=== PATIENT | male | born 1940 | race Caucasian/White ===

== ENCOUNTER 2023-11-21 19:21 | Emergency (ER) | payer MEDICARE, OTHER, SELFPAY ==
[2023-11-21 19:24] VITALS: BP 122/97
[2023-11-21 19:25] VITALS: BP 122/97
[2023-11-21 19:55] VITALS: BP 124/77
[2023-11-21 20:00] VITALS: BP 128/61
--- NOTE | 2023-11-21 20:08 | ED.GENMED ---
History of Present Illness
General
Chief Complaint: Fall
Source: senior living (Spoke with Stephanie at [facility])
Exam Limitations: dementia
Time Seen by Provider: 11/21/23 19:25
Travel History
Have you had any contact with someone who has COVID-19?: Unable to Answer
Do you have any symptoms of coronavirus? Fever > 100 degrees, chills, cough, shortness of breath, sore throat, loss of taste or smell, muscle aches, or headache?: Unable to Answer
History of Present Illness
History of Present Illness:
This is a 82 year old male that is brought in by ambulance after an unwitnessed fall. Called and spoke with Stephanie at [facility]. Told that patient fell hitting his face/head on the door. Told that this was an Unwitnessed fall. Denies any
LOC. Denies any fever, chills, chest pain, SOB, abd pain, nausea, vomiting, diarrhea, headache, dizziness.
Past History
Past History
ED Past Medical History: CAD, Cancer (Skin Ca), CVA, GERD, HTN, Hypercholesterolemia, CO and Psychiatric (Claustrophobia)
ED Past Surgical History: Cardiac (Stents X 2 LAD), Orthopedic (right knee Meniscus), Urological (Vasectomy) and Other (cataracts)
Social History
Tobacco: Non-smoker
Alcohol: None
Personal:
Living: senior living ([facility])
Review of Systems
Review of Systems
Unable to obtain full review of systems at this time due to: dementia
Other source history: senior living
All Other Systems: ROS reviewed and negative except as documented in HPI and ROS
Constitutional: Reports no symptoms; Denies fever or chills
EENT: Reports no symptoms
Respiratory: Reports no symptoms; Denies cough or trouble breathing
Cardiac: Reports no symptoms; Denies chest pain
ABD/GI: Reports no symptoms; Denies abdominal pain, nausea, vomiting or diarrhea
: Reports incontinence
Musculoskeletal: Reports no symptoms
Skin: Reports other (abrasion to face)
Neurological: Reports no symptoms; Denies dizzy or headache
Psychiatric: Reports no symptoms
Phy Exam
General Physical Exam
General Presentation: no apparent distress
General age: appears stated age
General Skin: warm and dry
General Habitus: elderly
General Mental: usual mental status
General Hydration: dry mucous membranes
ENT Exam
ENT Exam: TM's normal, pharynx normal and neck supple
Eye Exam
Eye Exam: EOMI
Cardiovascular Exam
Cardiovascular Exam: regular rate/rhythm, no edema and normal peripheral pulses
Pulmonary Exam
Pulmonary Exam: lungs clear, no respiratory distress, no rales, chest non tender, no crackles, no rhonchi, no wheezing and no cough
Gastrointestinal Exam
Gastrointestinal Exam: normal bowel sounds, non tender, soft, no organomegaly, no pulsatile mass and non distended
Musculoskeletal Exam
Musculoskeletal Exam: full ROM and no edema
Skin Exam
Skin Exam: normal color, warm/dry, no petechia and other (Abrasion to the right upper cheek, with contusion around the outer aspect of the right eye with superficial laceration at eyebrow)
Psychiatric Exam
Psychiatric Exam: normal mood/affect
Course
Orders/Labs/Results
Orders:
Orders
11/21/23 19:23
Electrocardiogram (*1) Urgent
Reason for Study: Fatigue / Weakness
11/21/23 19:24
EKG- Treatment ONCE
11/21/23 20:07
Facial Bones wo Contrast CT [CT Facial Bones W/o Iv Contras] Urgent
Comment:
Reason For Exam: fall hitting face
11/21/23 20:08
CT Head W/o Iv Contrast Urgent
Comment:
Reason For Exam: Unwitnessed fall hitting face and head
11/21/23 21:02
Urinalysis Reflex To Culture Urgent
Date Specimen was Collected: 11/21/23
Time Specimen was Collected: 20:53
Urine Microscopic Reflex Cult Urgent
Urine Culture Urgent
RAHUL Source: U
Specimen Description:
Date Specimen was Collected: 11/21/23
Time Specimen was Collected: 20:53
Abnormal Lab Results
11/21/23
21:02
Urine Ketones Trace A
(Negative)
Ur Occult Blood Reflex 3+ A
(Negative)
Urine Nitrite (Reflex) Positive A
(Negative)
Urine Urobilinogen 2+ A
(Neg - 1+)
Leukocyte Esterase Rfl 1+ A
(Negative)
Urine WBC (Reflex) 11-15 A /HPF
(0-5)
Urine Bacteria (Reflex) Many A
(Negative)
Urine Albumin (Reflex) 1+ A
(Neg - Trace)
Urine positive for infection.
Vital Signs
Initial and Last Documented VS:
Initial Vital Signs
Temp Pulse Resp BP Pulse Ox
98.0 F 69 16 122/97 98
11/21/23 19:24 11/21/23 19:24 11/21/23 19:24 11/21/23 19:24 11/21/23 19:24
Last Documented Vital Signs
Temp Pulse Resp BP Pulse Ox
98.0 F 76 17 128/61 96
11/21/23 19:24 11/21/23 21:15 11/21/23 21:15 11/21/23 20:00 11/21/23 21:00
MDM/Problems Addressed
Differential Diagnosis Includes:
UTI, Accidental fall
MDM/Problems Addressed:
This is a 82 year old male that comes in by ambulance with c/o unwitnessed fall. Called and spoke with Stephanie and said that the patient fall hitting the door but was unwitnessed.
will get CT head and facial bones.
Will discharge patient home. Back into see patient and he was quietly watching TV. Patient has no complaints.
Chronic conditions affecting care:
Dementia,
Acute Exacerbation and/or Progression of Chronic Illness:
Dementia
*Radiology
Radiology exam reviewed: radiology read reviewed (CT head and facial bones- NO CT evidence for an acute facial bone fracture. No acute intracranial abnormality. 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 Parenchymal atrophy with resultant
ventriculomegaly. Normal pressure Hydrocephalus would be an alternative consideration. )
*Pulse Oximetry
Patient hypoxic: no
*EKG
Interpreted by ED Provider?: Yes
Heart Rate: 71
Rate: normal
Rhythm: sinus
[place]: left axis deviation
Interval: normal interval
QRS Pattern: low voltage
Ischemia: no ischemia
*[employer] Interpretation
Rate: normal
Heart Rate: 69
Rhythm: sinus
*Critical Care Note
Total Time (30-74mins, 75-104mins- exclusive of procedures): Not Applicable
ED Attending Note
-
Portions of this chart may have been created with voice recognition software.� Occasional wrong word or��sound alike� substitutions may have occurred due to the inherent limitations of voice recognition software.
Discharge Plan
Departure
Patient Disposition: Long-Term/SNF
Date of Disposition: 11/21/23
Time of Disposition: 21:33
Patient with high blood pressure during this ER visit?: No
Condition: Good
Covid-19: Not Applicable
Discharge Problem:
Urinary tract infection, Accidental fall
Instructions: Contusion (DC), Preventing falls in adults, Urinary Tract Infection - Men
Prescriptions:
New
cephalexin 500 mg capsule
500 mg PO BID 7 Days Qty: 13 0RF
No Action
glucosamine HCl 1,500 MG tablet
1,500 mg PO BID
vitamin B complex 1 TAB tablet
1 tab PO Q2D
docosahexaenoic acid-epa 1 CAP capsule
2 cap PO BID
saw palmetto-pumpkin seed oil 160 MG capsule
160 mg PO BID
atorvastatin 80 MG tablet
80 mg PO QPM Qty: 90 10RF
clopidogrel 75 MG tablet
75 mg PO DAILY Qty: 90 10RF
pantoprazole 40 MG tablet,delayed release (DR/EC)
40 mg PO DAILY Qty: 90 10RF
losartan 25 MG tablet
25 mg PO DAILY Qty: 90 10RF
aspirin 81 MG tablet,chewable
81 mg PO DAILY 0RF
sildenafil [Viagra] 100 MG tablet
100 mg PO DAILY PRN (Reason: intercourse)
Referrals:
Elin Jacobo CRNP [Family Provider] - Call in 1-3 days for appt
Activity Restrictions/Additional Instructions:
As discussed, your CT of the head and facial bones is negative for any acute process. You do have a Urinary tract infection. Patient has been given his first dose of antibiotic here and a prescription for the next 7 days. Follow up with the family
doctor for recheck. Please increase his water intake to 8-8oz glasses daily. IF YOU HAVE ANY OTHER CONCERNS PLEASE RETURN TO THE EMERGENCY ROOM.
Interventions
Interventions:
*Risk Screen - Suicide Last Done: 11/21/23 19:24
*General Assessment Last Done: 11/21/23 19:37
*Neglect/Abuse Screening Last Done: 11/21/23 19:27
ED-Musculoskeletal Assessment Last Done: 11/21/23 19:58
ED- Neurological Assessment Last Done: 11/21/23 19:58
ED-Skin Assessment Last Done: 11/21/23 19:58
Discharge Date and Time
Print Language: [id number]
[2023-11-21 21:12] LABS: Urine Albumin 1+ (Neg - Trace); Urine Bilirubin Negative (Negative); Urine Character Clear (Clear); Urine Color Yellow; Urine Glucose Negative (Negative); Urine Ketone Trace (Negative); Urine Leukocyte 1+ (Negative); Urine Nitrite Positive (Negative); Urine Occult Blood 3+ (Negative); Urine Specific Gravity 1.025 (<1.030); Urine Urobilinogen 2+ (Neg - 1+)
[2023-11-21 21:20] LABS: Urine Bacteria Many (Negative); Urine Red Blood Cell 0-2 /HPF (0-2)
[2023-11-21] MEDS: KEFLEX 500 MG PO (21:36)
== END 2023-11-22 00:55 ==
LOC: EMR 19:21
PROVIDERS: Clinical Nurse Specialist Family Health; EMERGENCY PHYSICIAN Emergency Medicine; FAMILY PHYSICIAN Nurse Practitioner Adult Health
DX: S01.111A Laceration without foreign body of right eyelid and periocular area, initial encounter (principal); S00.11XA Contusion of right eyelid and periocular area, initial encounter; S00.81XA Abrasion of other part of head, initial encounter; N39.0 Urinary tract infection, site not specified; W01.198A Fall on same level from slipping, tripping and stumbling with subsequent striking against other object, initial encounter; I25.10 Atherosclerotic heart disease of native coronary artery without angina pectoris; I10 Essential (primary) hypertension; K21.9 Gastro-esophageal reflux disease without esophagitis; E78.00 Pure hypercholesterolemia, unspecified; I25.2 Old myocardial infarction; Z95.5 Presence of coronary angioplasty implant and graft; Z85.828 Personal history of other malignant neoplasm of skin; Z86.73 Personal history of transient ischemic attack (TIA), and cerebral infarction without residual deficits; Z79.82 Long term (current) use of aspirin
CPT/HCPCS: 99285; 51701; 70450; 70486; 81003; 81015; 87077; 87086; 87186; 93005